=== PATIENT | female | born 1945 | race Caucasian/White ===

== ENCOUNTER 2018-02-15 09:01 | Outpatient (CLI) | payer MEDICARE ==
[2018-02-15 14:07] LABS: Hemoglobin 13.5 g/dL (12.0-16.0); Mean Corpuscular HGB CONC 33.5 g/dL (32.0-36.0); Mean Corpuscular Hemoglobin 32.2 pg (27.0-31.0); Mean Corpuscular Volume 95.9 fl (81.0-99.0); Mean Platelet Volume 6.8 fL (7.4-10.4); Platelet Count 261 thou/uL (130-400); RBC Distribution Width 12.1 % (11.5-14.5); White Blood Cell (WBC) Count 5.9 thou/uL (4.8-10.8)
[2018-02-15 14:42] LABS: Anion Gap 11 mmol/L (10-20); BUN (Urea Nitrogen) 14 mg/dL (9.8-20.1); Calc. Creatinine Clearance 0 mL/min (70-130); Calcium 9.7 mg/dL (7.8-10.44); Carbon Dioxide 30 mmol/L (23-31); Chloride 103 mmol/L (98-107); Estimated GFR-MDRD 76; Glucose 102 mg/dL (83-110); Potassium 3.6 mmol/L (3.5-5.1); Sodium 140 mmol/L (136-145)
== END 2018-02-15 09:02 | disposition home or self-care (01) ==
LOC: LABBT 09:01
PROVIDERS: ATTEND Podiatrist Foot & Ankle Surgery
DX: Z01.812 Encounter for preprocedural laboratory examination (principal); M21.612 Bunion of left foot; M89.9 Disorder of bone, unspecified; M20.42 Other hammer toe(s) (acquired), left foot
CPT/HCPCS: 80048; 85027

== ENCOUNTER 2018-02-22 09:37 | Day surgery (SDC) | payer MEDICARE ==
[2018-02-15 14:07] VITALS: BMI 22.7
[2018-02-22] MEDS ORDERED: Fentanyl 250 MCG/5 ML VIAL ONE (09:53)
[2018-02-22] MEDS ORDERED: Neomycin-Polymyxin 1 ML AMP ONE (09:54)
[2018-02-22] MEDS ORDERED: Bupivacaine PF 0.5% 30 ML VIAL ONE (09:54)
[2018-02-22] MEDS ORDERED: Scopolamine 1.5 mg/72 hour Patch ONE (10:12)
[2018-02-22] MEDS ORDERED: CEFAZOLIN/Water 2 GM/20 ML SYRINGE ONE (10:12)
[2018-02-22] MEDS ORDERED: Promethazine HCl 25 MG/ML VIAL ONE (12:57)
--- NOTE | 2018-02-22 13:25 | OP ---
DATE OF PROCEDURE: 02/22/2018 SURGEON: Ayde Mcleod DPM. PREOPERATIVE DIAGNOSES: Bunion, left foot; hammertoe, fifth digit left foot; exostosis second and fo urth digits, left foot; pain, left foot. PROCEDURES PERFORMED: Stephen bunionectomy, left foot; arthroplasty fifth digit with skin plasty, lef t fifth toe; resection of exostosis second digit and resection of exostosis fourth digit. ANESTHESIA: General with local foot block. HEMOSTASIS: Pneumatic ankle tourniquet at 250 mmHg. ESTIMATED BLOOD LOSS: Less than 5 mL MATERIALS: 2-0 Vicryl, 4-0 Vicryl and 4-0 Prolene, 1 Synthes 3.0 x 30 mm headless compression screws . INJECTABLES: 25 mL of 0.5% Marcaine plain. DESCRIPTION OF PROCEDURE: The patient was brought into the operating room and placed on the operatin g table in supine position. Well-padded pneumatic ankle tourniquet placed about the patient's left a nkle. Following administration of IV anesthesia, local foot block was given utilizing 25 mL of 0.5% Marcaine plain. The foot was then scrubbed, prepped and draped in usual aseptic manner. Esmarch ban dage was used to exsanguinate the patient's left foot and the pneumatic ankle tourniquet was then inf lated to 250 mmHg, which provided adequate hemostasis throughout the entire procedure. Next, attenti on was then directed to the dorsal aspect of the patient's first metatarsophalangeal joint where a 6 cm linear longitudinal incision was made over the dorsal aspect of the first metatarsophalangeal join t. The incision was deepened through the subcuticular structures with care being taken to retract al l neurovascular structures. All bleeders were cauterized as necessary. A T-type capsulotomy was the n performed exposing the head of the first metatarsal as well as the base of the proximal phalanx. U bhargav adequate exposure of the head of the first metatarsal, the medial prominence was then carefully r esected and passed from the operative field utilizing a sagittal bone saw. Next, a Chevron type oste otomy was performed shifting the head into a more corrected lateral position, was held in place with temporary fixation of a K-wire. Next techniques and principles of the [employer] were then used to place a 3.0 x 30 mm screw from dorsal proximal to plantar distal. Next, the remaining medial bon e shelf was then carefully resected and passed from the operative field and all exostosis surrounding the proximal phalanx base were then resected and passed from the operative field utilizing a rongeur . Next, the wound was irrigated with copious amounts of sterile normal saline and mixture. The c apsular structures were reapproximated and coapted utilizing 4-0 Vicryl, the subcu was reapproximated and coapted utilizing 4-0 Vicryl, and the skin was closed with 4-0 Prolene in a running interlocking suture pattern. Next, attention was then directed to the fifth digit where an elliptical incision w as made from proximal lateral to distal medial allowing for rotation of the digit. Upon adequate exp osure of the tendon, a transverse tenotomy was performed exposing the head of the proximal phalanx as well as the exostosis. Both were then resected from the operative field utilizing a sagittal bone s aw. The wound was irrigated with copious amounts of sterile normal saline and mixture. The skin and tendon were then reapproximated and coapted utilizing 4-0 Vicryl and the skin was closed with 4-0 Prolene in a simple interrupted suture technique. Next, attention was then directed to the fourth d igit to the lateral proximal interphalangeal joint where a lateral prominence was then carefully note d. A transverse incision was then made and a sagittal bone saw was used upon adequate exposure of th e joint. The exostosis was then carefully resected and passed from the operative field. The wound w as irrigated with copious amounts of sterile normal saline and mixture and the subcu was then reap proximated and coapted utilizing 4-0 Vicryl and the skin was closed utilizing 4-0 Prolene in a simple interrupted suture technique. Next, attention was then directed to the second digit of the left noam t where a longitudinal incision was made to the proximal interphalangeal joint medially. Upon adequa te exposure of the bone, the exostosis was then carefully resected and passed from the operative fiel d. The wound was irrigated and it was sutured with 4-0 Vicryl for deep closure and 4-0 Prolene for s kin closure. A light compressive dressing was placed about the patient's left foot and the pneumatic ankle tourniquet was released allowing for prompt hyperemic response noted to all digits of the left foot. DISCHARGE SUMMARY: The patient tolerated the procedure and anesthesia and was transferred to the rec overy room with vital signs stable and vascular status intact to all digits of the left foot. Follow ing a period of postoperative monitoring, the patient is to be discharged home. Should she have any problems prior to the first postoperative appointment, she is advised to call and will be seen within 1 week of the procedure.
--- NOTE | 2018-02-22 13:46 | RAD ---
LEFT FOOT 3 VIEWS: Date: 02/22/18 HISTORY: Bunionectomy. COMPARISON: None. FINDINGS: There is soft tissue swelling and bandage material, compatible with recent surgery. There is a solita ry screw traversing the distal aspect of the first metatarsal. No perihardware lucency. Alignment is near anatomic. Joint spaces are preserved. Lisfranc alignment is maintained. IMPRESSION: Findings compatible with recent surgery at the distal first metatarsal. POS: LENA
[2018-02-22] MEDS ORDERED: Ketorolac Tromethamine 30 MG/ML VIAL ONE (17:41)
[2018-02-22] MEDS ORDERED: Ondansetron HCl/PF 4 MG/2 ML Vial ONE (17:41)
[2018-02-22] MEDS ORDERED: Lidocaine 1% PF 5 ML VIAL ONE (17:41)
[2018-02-22] MEDS ORDERED: ePHEDrine/0.9% NaCl/PF SYRINGE 50 mg/10 ml ONE (17:41)
[2018-02-22] MEDS ORDERED: PROPOFOL 200 MG/20 ML VIAL ONE (17:41)
== END 2018-02-22 15:25 | disposition home or self-care (01) ==
LOC: SDC 09:37
PROVIDERS: ATTEND Podiatrist Foot & Ankle Surgery
PROC: 0QSP04Z Reposition Left Metatarsal with Internal Fixation Device, Open Approach (ICD-10-PCS; principal; 2018-02-22)
PROC: 0L8W0ZZ Division of Left Foot Tendon, Open Approach (ICD-10-PCS; 2018-02-22)
PROC: 0QBR0ZZ Excision of Left Toe Phalanx, Open Approach (ICD-10-PCS; 2018-02-22)
DX: M21.612 Bunion of left foot (principal); M20.42 Other hammer toe(s) (acquired), left foot; M89.9 Disorder of bone, unspecified; Z79.899 Other long term (current) drug therapy; Z88.2 Allergy status to sulfonamides; Z88.5 Allergy status to narcotic agent; Z91.013 Allergy to seafood; Z91.041 Radiographic dye allergy status
CPT/HCPCS: 28124 ×2; 28285; 28296; 73630; C1713; J1885; J2001; J2405; J2550; J2704; J3010; S0020